=== PATIENT | female | born 1935 | race Caucasian/White ===

== ENCOUNTER 2017-01-27 16:22 | Inpatient (IN) | payer MEDICARE ==
--- NOTE | ~2017-01-27 | WRIGHTHP ---
[place], [place] PATIENT HISTORY AND PHYSICAL EXAM NAME: SAVAGE CANCHOLA UNIT #: [id number] ROOM: 310 DOCTOR: SID DENNEY MD BIRTHDATE: [birth year] DOS: 01/27/2017 CHIEF COMPLAINT: "Just leave me alone." HISTORY OF PRESENT ILLNESS: This is an 81-year-old white female who resides at the [facility]. The patient has had an escalation in her behavior becoming increasingly more verbal and physically agitated and aggressive. The patient also has been repeatedly stating that she wants to and is tired of living in a correction and would rather be . She has not been eating, nor has she been sleeping well and has been episodically noncompliant with her medications. She has been pulling her hair out and has been so aggressive and self-injurious that the staff at the [facility] fear for her safety as well as the safety of other residents. She is admitted now to rule out organic factors and to attempt to stabilize on medication with the ultimate plan to return back to the [facility] when psychiatrically stable. PAST MEDICAL HISTORY: Remarkable for coronary artery disease, chronic obstructive pulmonary disease, gait disturbance, hypertension, hyperlipidemia, a lung nodule, history of TIAs, breast cancer, dementia and depression. MENTAL STATUS: The patient is alert and oriented to self only. She is very confused and disoriented. She was not extremely compliant during my initial interview and was rather dismissive. Her responses to me were short and terse and she was very easily agitated. She did not appear to be experiencing any type of auditory or visual hallucinations, nor did I see the presence of any delusions or paranoia. Short-term and intermediate memory are grossly impaired. Long-term does seem to be intact. DIAGNOSIS: Major depression, recurrent, severe, and impulse control disorder, not otherwise specified along with Alzheimer's dementia. PLAN: I will increase her Depakote to 250 mg 3 times a day. I am targeting a blood level between 60-80. I will start her on Trintellix 10 mg a day to combat the depressive symptomatology. I have maintained her on Exelon patch and Namenda in order to improve or maintain ADLs, behavior and cognition. We will engage her in individual and verduzco milieu activity again with the plan to return to the [facility] when psychiatrically stable. [place], [place] PATIENT HISTORY AND PHYSICAL EXAM NAME: SAVAGE CANCHOLA UNIT #: [id number] ROOM: 310 DOCTOR: SID DENNEY MD BIRTHDATE: [birth year] SID DENNEY MD CM:HISPHYS:PATIENT HISTORY AND PHYSICAL EXAMINATION [id number] SID DENNEY MD 01/28/17 0933 interface
[~2017-01-27 16:22] MED LIST: ACETAMINOPHEN-O1 TAB PO; ANTI-DIARRHEA2 MG PO; ATIVAN0.5 MG PO; ATIVAN1 MG PO; CIPROFLOXACIN500 M4 PO; CYMBALTA60 MG PO; EXELON PO; EXELON3 MG PO; KEFLEX500 M1 PO; LIPITOR40 MG PO; LOPRESSOR25 MG PO; LOPRESSOR50 M1 PO; LORAZEPAM1 MG PO; MACROBID100 M1 PO; MAPAP ARTHRITI650 MG PO; MAPAP325 MG PO; Meclizine25 MG PO; NAMENDA-7 PO; NORVASC5 MG PO; PERCOCET 325 MG1 TA5 PO; PERCOCET 325 MG1 TA6 PO; PREDNISONE10 M1 PO; Percocet 325 MG1 TAB PO; RIVASTIGMINE T1.5 M1 PO; TYLENOL325 M1 PO; TYLENOL325 M2 PO; VITAMIN D1000 IU PO; ZOFRAN4 MG PO; ZOLOFT50 MG PO
[2017-01-27] MEDS ORDERED: DULCOLAX5 M1 PO (16:40)
[2017-01-27] MEDS ORDERED: ANTI-DANDRUFF251 ML T (16:45)
[2017-01-27] MEDS ORDERED: DEPAKOTE SPRIN125 MG PO (16:46)
[2017-01-27] MEDS ORDERED: EXEL13.31 T (16:47)
[2017-01-27] MEDS ORDERED: NAMENDA XR1 EACH PO (16:48)
[2017-01-27] MEDS ORDERED: REMERON15 M2 PO (16:49)
[2017-01-27 20:30] VITALS: BP 100/63
[2017-01-27 22:00] VITALS: BP 100/65
[2017-01-28 07:26] LABS: HEMATOCRIT 48.3 % (37.0-47.0); HEMOGLOBIN 16.1 g/dl (12.0-16.0); MEAN CELL VOLUME 92.2 fl (81.0-99.0); MEAN CORPUSCULAR HGB 30.7 pg (27.0-31.0); MEAN CORPUSCULAR HGB CONC 33.3 g/dl (33.0-37.0); MEAN PLATELET VOLUME 10.6 fl (9.6-12.3); PLATELET COUNT AUTOMATED 159 10*3/uL (130-400); RED BLOOD COUNT 5.24 10*6/uL (4.10-5.10); RED CELL DISTRI WIDTH 19.2 % (0-14.5)
[2017-01-28 07:52] LABS: BUN 23 mg/dl (7-24); CARBON DIOXIDE 35 mmol/L (21-32); CHLORIDE 103 mmol/L (98-107); EST GLOM FILT AFRICAN AMERICAN > 60 ml/min; GLUCOSE 71 mg/dL (65-99); POTASSIUM 4.1 mmol/L (3.5-5.1); SGOT/AST 79 IU/L (3-35); SGPT/ALT 28 U/L (12-78); SODIUM 145 mmol/L (136-145); TOTAL PROTEIN 5.1 gm/dL (6.4-8.2)
[2017-01-28 07:54] LABS: BASOPHIL # 0.1 10*3/uL (0-0.1); BASOPHILS 1 % (0-1); LYMPHOCYTE # 0.9 10*3/uL (1.3-4.4); MONOCYTE # 1.1 10*3/uL (0.1-1.0); NEUTROPHILS 71 % (47-73); PLATELET SUFFICIENCY NORMAL (NORMAL); TOTAL CELLS COUNTED 100 #CELLS
[2017-01-28 08:00] VITALS: BP 102/58
[2017-01-28 08:01] LABS: ALKALINE PHOSPHATASE 271 U/L (45-117)
[2017-01-28 19:57] VITALS: BP 104/76
[2017-01-28] MEDS ORDERED: DEPAKOTE SPRIN125 MG PO (23:02)
[2017-01-28] MEDS ORDERED: NAMENDA10 MG PO (23:03)
[2017-01-28] MEDS ORDERED: TRINTELLIX10 MG PO (23:04)
[2017-01-29] MEDS ORDERED: ATIVAN1 MG PO (09:04)
[2017-01-29] MEDS ORDERED: REMEDY CALAZIM113 GM TP (09:06)
[2017-01-29] MEDS ORDERED: REMERON15 M2 PO (09:07)
== END 2017-01-28 23:25 | disposition other institution (70) | DRG 885 ==
LOC: 3N 16:22
PROVIDERS: Psychiatry & Neurology Psychiatry
DX: F33.9 Major depressive disorder, recurrent, unspecified (principal); G30.9 Alzheimer's disease, unspecified; J44.9 Chronic obstructive pulmonary disease, unspecified; F02.80 Dementia in other diseases classified elsewhere, unspecified severity, without behavioral disturbance, psychotic disturbance, mood disturbance, and anxiety; F23 Brief psychotic disorder; F63.9 Impulse disorder, unspecified; I25.10 Atherosclerotic heart disease of native coronary artery without angina pectoris; R26.9 Unspecified abnormalities of gait and mobility; I10 Essential (primary) hypertension; E78.5 Hyperlipidemia, unspecified; Z53.29 Procedure and treatment not carried out because of patient's decision for other reasons; Z86.73 Personal history of transient ischemic attack (TIA), and cerebral infarction without residual deficits; Z85.3 Personal history of malignant neoplasm of breast; Z87.81 Personal history of (healed) traumatic fracture; Z90.49 Acquired absence of other specified parts of digestive tract; Z95.818 Presence of other cardiac implants and grafts; Z90.11 Acquired absence of right breast and nipple; Z72.0 Tobacco use; Z83.3 Family history of diabetes mellitus; Z80.9 Family history of malignant neoplasm, unspecified; Z88.0 Allergy status to penicillin; Z88.6 Allergy status to analgesic agent; Z79.899 Other long term (current) drug therapy

== ENCOUNTER 2017-01-28 22:53 | Inpatient (IN) | payer MEDICARE ==
[~2017-01-28] VITALS: Ht 157.5 cm; Wt 35.8 kg
--- NOTE | ~2017-01-28 | PR ---
[place], [place] PROGRESS NOTE NAME: SAVAGE CANCHOLA UNIT #: [id number] ROOM: 506 DOCTOR: TRISTIN LIRIANO MD,JUSTINO BIRTHDATE: [birth year] DOS: 02/06/2017 SUBJECTIVE: She has been comfortably sitting on the chair this morning without any acute distress. The patient has not been noted any symptoms of acute chest pain, coughing or any sputum expectoration. Denies symptoms of abdominal pain. OBJECTIVE: VITAL SIGNS: For the patient which has been recorded shows temperature was noted as normal, respiratory rate 16, heart rate 84, blood pressure 111/88. Pulse oxygen saturation of the patient noted on 3 liters nasal canula 98% saturation. HEENT: Examination shows no acute change. NECK: Supple. CARDIOVASCULAR: S1, S2 audible. LUNGS: The patient was noted without any wheezing or crackles. ABDOMEN: Soft, nontender. LABORATORY DATA: The patient's CBC: WBC count 11.3, platelet count 123,000. Remaining labs were normal. IMPRESSION: 1. The patient with pulmonary nodules in the right upper lung with history of dementia as well. 2. History of breast cancer. PLAN OF TREATMENT: No changes in pulmonary standpoint. She was still awaiting for authorization and transfer to the nursing facility. JUSTINO CROW MD CM:PNTRANS [id number] JUSTINO LIRIANO MD 02/12/17 1528 CRISPIN [email or web address]
--- NOTE | ~2017-01-28 | PR ---
[place], [place] PROGRESS NOTE NAME: SAVAGE CANCHOLA UNIT #: [id number] ROOM: 506 DOCTOR: JUSTINO RIVERA MD BIRTHDATE: [birth year] DOS: 02/02/2017 PULMONARY PROGRESS NOTE SUBJECTIVE: She has been comfortably resting on the bed at this time. She has not been noted any ongoing acute respiratory complaints at this time. Remains awake and alert. OBJECTIVE: VITAL SIGNS: For the patient which has been recorded shows normal temperature, respiratory rate 18, heart rate 80, blood pressure 126/60-141/95. The pulse oxygen saturation for the patient recorded as 94% on 2 liters nasal cannula. HEENT: Shows no acute change. NECK: Supple. CARDIOVASCULAR: S1, S2 is audible. LUNGS: The patient was noted without any wheeze or crackles at this time. ABDOMEN: Soft, nontender. LABORATORY DATA: BMP was noted grossly normal except sodium minimally elevated at 147. CBC: WBC count 13.5, hemoglobin 16.3, hematocrit 49.0 with a platelet count of 144,000. IMPRESSION: 1. Resolving acute hypoxic respiratory failure, lactic acidosis. 2. Right upper lung pulmonary nodule. Noted suspicion or possibility of lung malignancy. 3. History of breast cancer in the past as well. PLAN OF TREATMENT: No changes in the plan or management at this time. The patient seemed to be responding to treatment, improving and comfortably resting on the bed. Once any decision made by the family member for the patient for further assessment that needs to be done as an outpatient. The further assessment of the pulmonary nodule will be ordered accordingly. [place], [place] PROGRESS NOTE NAME: SAVAGE CANCHOLA UNIT #: [id number] ROOM: 506 DOCTOR: JUSTINO RIVERA MD BIRTHDATE: [birth year] JUSTINO CROW MD CM:PNTRANS [id number] JUSTINO LIRIANO MD 02/02/17 2243 interface
--- NOTE | ~2017-01-28 | PR ---
[place], [place] PROGRESS NOTE NAME: SAVAGE CANCHOLA UNIT #: [id number] ROOM: 506 DOCTOR: JUSTINO RIVERA MD BIRTHDATE: [birth year] DOS: 02/03/2017 PULMONARY FOLLOWUP SUBJECTIVE: She has been currently resting on the bed without any distress. One of the sons for this patient has been noted present in the room. She had not been reported any symptoms of chest congestion, coughing, shortness of breath. The patient has been noted to be sleepy at the present time. OBJECTIVE: VITAL SIGNS: Normal temperature, respirations 18-20, heart rate 119, blood pressure 102/78. HEENT AND NECK: Shows no acute change. Neck was supple. CARDIOVASCULAR: S1, S2 audible. LUNGS: Noted without any wheezing or crackles. ABDOMEN: Soft, nontender. EXTREMITIES: Remains unchanged. LABORATORY DATA: CBC today: WBC count 11.7, hemoglobin of 17.592, hematocrit of 52.2, platelet count was noted as normal. CMP of 02/03/2017 shows BUN of 25, creatinine 1.04. Glucose was normal. Remaining other electrolytes were noted normal as well. IMPRESSION: 1. The patient with change in mental status, which has been noted with incidental finding of right upper lung pulmonary nodule. 2. History of breast cancer was known as well. PLAN OF TREATMENT: Continue current therapy, plan and management. The patient's nodule in the lung has been discussed with the second son of the patient who was present in the room with the patient. Once the family members and the patient decide for any further intervention or assessment of the right upper lung pulmonary nodule, it will be done accordingly. [place], [place] PROGRESS NOTE NAME: SAVAGE CANCHOLA UNIT #: [id number] ROOM: 506 DOCTOR: JUSTINO RIVERA MD BIRTHDATE: [birth year] JUSTINO CROW MD CM:PNTRANS [id number] JUSTINO LIRIANO MD 02/03/17 1413 interface
--- NOTE | ~2017-01-28 | CON ---
[place], [place] REPORT OF CONSULTATION NAME: SAVAGE CANCHOLA UNIT #: [id number] ROOM: 506 DOCTOR: TRISTIN LIRIANO MD,JUSTINO BIRTHDATE: [birth year] DOS: 02/01/2017 PULMONARY CONSULTATION REASON FOR CONSULTATION: To assess the patient's recent finding of mass lesion on the CT scan of the chest. HISTORY OF PRESENT ILLNESS: This is an 81-year-old white female, who has been admitted to the hospital under care of the hospitalist services on 01/28/2017. The patient has been initially admitted to the hospital in the Behavioral Health Unit because of the medical management of acute psychosis. The patient developed oxygen desaturation. The patient intubated at [facility] and then transferred to the acute care hospital for further medical management. The patient reported at that time symptoms of shortness of breath. She denied symptoms of chest pain. Denied symptoms of coughing or sputum expectoration at this time. The patient was also noted decreased responsiveness as well for this patient that has been noted in her history. The patient has been managed in this hospital. She has had a CT scan of the chest done, which was noted with problems and a mass-like lesion in the right lung and I was asked to see the patient. The patient currently denies any ongoing symptoms of shortness of breath, coughing, sputum expectoration, chest pain or hemoptysis. REVIEW OF SYSTEMS: The patient is stating that the patient has been known with history of dementia, and review of systems and history of patient will be limited. Most of the history of the patient otherwise was noted from review of the current documentation, medical records of other physicians, records and the nursing staff. CONSTITUTIONAL SYMPTOMS: Denies symptoms of fever or chills. Complaining of fatigue. There were no changes in appetite. EYES: Denied any burning, redness, or tenderness. EARS, NOSE, THROAT SYMPTOMS: No sore throat, hoarseness, or otalgia. CARDIOVASCULAR: Denies anginal pain, edema, pain of the lower extremities. GASTROINTESTINAL: Denies dysphagia, nausea, vomiting, diarrhea, abdominal pain, hematemesis, or melena. GENITOURINARY: Denies dysuria, suprapubic pain, hematuria. SKIN: Denies lesions or rashes. CENTRAL NERVOUS SYSTEM: Denies dizziness, headache, diplopia or syncopal episodes. Remaining systems were reviewed with the patient, they were noted all negative. PAST MEDICAL HISTORY: Noted with history of: 1. COPD. 2. Coronary artery disease. 3. History of chronic dementia. 4. General weakness of the patient and difficulty of ambulation. 5. Essential hypertension. 6. Hyperlipidemia. 7. History of transient ischemic attack. 8. History of past, described as pulmonary nodules as well. [place], [place] REPORT OF CONSULTATION NAME: SAVAGE CANCHOLA UNIT #: [id number] ROOM: [facility] DOCTOR: TRISTIN LIRIANO MD,JUSTINO BIRTHDATE: [birth year] 9. History of breast cancer, right, treated in 2008, surgically. PAST SURGICAL HISTORY: 1. The patient reported with back surgery. 2. Cholecystectomy. 3. Cardiac catheterization and coronary artery stent placement. 4. Right breast lumpectomy done in 2008. The patient's further details were unknown. SOCIAL HISTORY: The patient currently a resident of [facility]. She is staying there for 6 months or greater as per son. She has been noted with history of tobacco use at a pack of cigarettes per day that was discontinued approximately in 2014. She is and has 2 children. FAMILY HISTORY: The patient was reported as history of diabetes mellitus in the father and cancer in the mother of unknown kind of cancer. MEDICATIONS: On admission listed use of Dulcolax, ____, vitamin D, Depakote, lorazepam, Namenda, rivastigmine. DRUG ALLERGIES: 1. ASPIRIN. 2. PENICILLINS. Previous medications noted use of intravenous Solu-Medrol, Levaquin, meropenem, and vancomycin. This morning, the patient was started on the doxycycline oral 100 mg b.i.d. and tapering dose of prednisone 40 mg daily. The patient also receiving Lovenox for DVT prophylaxis. PHYSICAL EXAMINATION: GENERAL: An 81-year-old elderly female currently noted awake and alert without any distress. Height 5 feet 3 inches, weight 79 pounds. BMI was only noted as 14. VITAL SIGNS: For the patient, which has been done showed the temperature recorded normal, respiratory rate 16-18, heart rate of 99-110, blood pressure 116/72-142/98. Pulse oxygen saturation of the patient recorded on 2 L nasal cannula 98% saturation. HEENT: Examination shows head was atraumatic. Eyes nonicterus. NECK: Supple. CARDIOVASCULAR: S1, S2 audible. LUNGS: The patient was noted without any wheezing or crackles at the present time. ABDOMEN: Soft, nontender, bowel sounds present. CENTRAL NERVOUS SYSTEM: The patient has loss of muscle mass, the patient noted without any gross focal deficit. Cranial nerves are grossly noted intact secondary to ____. MUSCULOSKELETAL: No deformities. SKIN: Showed no lesions or any rashes. LABORATORY DATA: CBC of the patient on 01/28/2017 was noted essentially normal. [place], [place] REPORT OF CONSULTATION NAME: SAVAGE CANCHOLA UNIT #: [id number] ROOM: 506 DOCTOR: TRISTIN LIRIANO MD,[facility] BIRTHDATE: [birth year] CMP of the patient on 01/28/2017 was noted as CO2 35. The BMP was normal. Lactic acid was 2.6, noted, upon admission, the acute care for this patient later noted as elevated up to 7.4 and other levels. PT/PTT for the patient that was done on 01/29/2017 on admission, INR 1.3, PTT normal. CBC of the patient of 01/29/2017, hemoglobin 18.3, hematocrit 54.3, WBC count normal, platelet count was normal at that time. The CMP of the patient on 01/29/2017 shows BUN 26, creatinine was normal. CO2 of 33. Modified barium swallow with the patient completed for this patient on 01/29/2017, was described as passive penetration with nectar thick consistency. Otherwise, normal oropharyngeal reflux was described. CBC of 01/30/2017 was noted with a normal BUN and creatinine. CMP of the patient, BUN 26, creatinine was normal, glucose 167. The blood culture for the patient, which were done for the patient of 01/29/2017, 2 sets, the patient was noted without any abnormal bacterial growth in isolation. Vancomycin trough level today was noted at 4.4. The BMP for this patient that was noted for this patient as glucose 64, BUN and creatinine were normal. Review of the radiology data for this patient, chest x-ray of the patient that was done on 01/28/2017 shows small nodular density noted in the right upper lobe. CT scan of the chest, which was done without contrast for the patient was reviewed for this patient was noted as findings of 2.3 cm nodule for the patient, which has been noted in the right upper lung in the subpleural area for this patient. Remaining lungs were noted clear. A 5 mm new sclerotic lesion was described in the thoracic spine vertebral body, raising a possible suspicion of metastatic cancer. IMPRESSION: 1. The patient with current admission to the hospital. The patient with suspected pneumonia, but there is no documentation of any infiltration noted on the chest x-ray or on the CT scan of the chest. The etiology of the patient's acute hypoxic respiratory failure and lactic acidosis at this time seemed to be resolving, underlying infection in the patient cannot be exactly pinpointed. 2. Hemoconcentration. The patient was noted with elevation in hematocrit, most likely secondary to volume contraction, which seemed to be resolved at the present time. 3. History of breast cancer. The patient was noted on the right side in the past. Further details were not clearly known. Current nodule in the patient and some abnormality in the spine, raising the suspicion of possibility of metastatic malignancy. 4. The patient has been currently admitted to the hospital, developed acute hypoxic respiratory failure. The patient's hemoconcentration with the questionable diagnosis of pneumonia; however, the pneumonia or infiltration has not been seen on the chest x-ray and CT scan of the chest, underlying sepsis or pneumonia, from other parts of the body certainly cannot be completely excluded. A resolution of the current problem, which was noted on acute admission. 5. Nodule which is noted in the right upper lobe for this patient as well as some abnormality in the thoracic spine and vertebral body, raising the suspicion of possibility of metastatic malignancy for this patient as well. In view of the past history of breast cancer which has been treated in 2008 for this patient, certainly the possibility of remote cancer recurring and the metastatic disease in the patient's thorax and vertebral spine remain in consideration. [place], [place] REPORT OF CONSULTATION NAME: SAVAGE CANCHOLA UNIT #: [id number] ROOM: 506 DOCTOR: JUSTINO RIVERA MD BIRTHDATE: [birth year] The other differential to be considered with the patient's primary lung cancer metastasis to the bone in the differential diagnosis. 6. History of chronic dementia. 7. Clinical suspicion of severe protein calorie malnutrition. 8. History of chronic dementia and multiple other medical problems, which have been reported including coronary artery disease. In the management component at this time, agree with the de-aspiration and antibiotic because of lack of any culture support and current use of broad spectrum intravenous antibiotic, lactic acidosis has been already resolved. The patient continues to be treated otherwise symptomatically at this time. I had a detailed discussion with one of the patient's son, who was present in the room with the patient about the current problem. Further assessment that needs to be done with patient as an outpatient with a PET scan for the patient and consideration of needle aspiration biopsy of the right upper lung nodule, currently noted highly suspicious with possibility of malignancy because of his parents. Oxygen supplementation certainly to be used for this patient to maintain saturation 90% or greater. Usual care and other therapies. Improve the nutritional status for this patient as well. Thank you for allowing me to participate in the care of this patient. JUSTINO CROW MD CM:CONSTR:REPORT OF CONSULTATION 1519 02/02/17 0313 interface
--- NOTE | ~2017-01-28 | PROC NOTE ---
[place], [place] PROCEDURE NOTE NAME: SAVAGE CANCHOLA UNIT #: [id number] ROOM: 506 DOCTOR: MALISSA NOBLE BIRTHDATE: [birth year] DOS: 01/29/2017 MODIFIED BARIUM SWALLOW LOCATION: [facility], room 506, bed 1. DOCTOR: Dr. Bauer. RADIOLOGIST: Dr. Parks. BACKGROUND INFORMATION: The patient, an 81-year-old female, was seen for a modified barium swallow. This test was ordered to rule out aspiration. This patient was transferred to the medical floor from the behavioral health unit due to respiratory failure with hypoxia. Further medical history includes sepsis due to pneumonia, CAD, COPD, dementia, weakness, TIA, lung nodule, malignant neoplasm of left breast. The patient had been on the Behavioral Health Unit due to suffering a brief psychotic disorder. She was transferred from a residential. She currently receives a regular diet and thin liquids. For today's assessment, the patient was lethargic. She needed cues to maintain alertness. The patient was receiving oxygen via nasal cannula. She had difficulty following commands. Therefore, full assessment of oral motor functioning was unable to be completed. The patient was edentulous. METHODS AND MATERIALS USED FOR THE EXAM: The patient was positioned in the lateral plane and the exam was viewed under fluoroscopy. The patient was presented with a variety of consistencies to assess swallowing skills including applesauce mixed with barium presented in half teaspoon amounts, honey-thick and nectar-thick barium presented in single sip sized amounts. The patient needed cues throughout the study to remain awake and 2 propel and swallow her food. ORAL PHASE: The patient achieved adequate labial seal around cup and spoon with no anterior loss. Bolus formation and transit were moderately impaired and residue of a moderate amount was displayed in the anterior sulcus with all consistencies given. Tongue to palate contact was adequate. Tongue to posterior pharyngeal wall contact was mildly impaired. Velar functioning was within normal limits. PHARYNGEAL PHASE: The patient needed cues as previously mentioned in order to swallow due to her mental state. Once the swallow triggered, there was no penetration or aspiration occurring with honey-thick or pureed consistency. Silent penetration did occur with nectar thick liquids, a mild amount of residue in the vallecula was noted with puree. No other consistencies were attempted due to the patient's status. ESOPHAGEAL PHASE: This phase of the swallow was not formally assessed during this examination. IMPRESSIONS AND RECOMMENDATIONS: Throughout the study, the patient needed frequent cues to maintain alertness and ability to participate. She displayed poor bolus formation and transit as well as residue in the anterior sulcus. [place], [place] PROCEDURE NOTE NAME: SAVAGE CANCHOLA UNIT #: [id number] ROOM: [facility] DOCTOR: MALISSA NOBLE BIRTHDATE: [birth year] Penetration during the swallow occurred with nectar-thick liquid. Reports indicate that the patient has been lethargic due to this and due to the results of today's study, n.p.o. is recommended at this time. The patient is not alert enough to eat safely. Followup therapy is recommended in order to continue to monitor the patient as she may be able to tolerate a diet once she is more alert. Results and recommendations will be shared with the patient's nurse. Thank you very much for this referral. Should you have any questions regarding this patient, please contact the speech pathologist at [phone]. MALISSA NOBLE CM:PROCNOTE:PROCEDURE NOTE [id number] MALISSA NOBLE
--- NOTE | ~2017-01-28 | CON ---
[place], [place] REPORT OF CONSULTATION NAME: SAVAEG CANCHOLA UNIT #: [id number] ROOM: 506 DOCTOR: MARISA LOUIS BIRTHDATE: [birth year] DOS: 02/02/2017 CHIEF COMPLAINT: The resident is sleeping. HISTORY OF PRESENT ILLNESS: She is an 81-year-old female who was brought into the Behavioral Health Unit for acute agitation and behaviors. Subsequently, she was transferred here to the medical floor with acute respiratory failure. She did have a chest x-ray that was positive for pneumonia and she has been medically treated for that. PAST MEDICAL HISTORY: Coronary artery disease, COPD, dementia, depression, history of breast CA. She has hypertension and she does have a past history of TIA. ALLERGIES: She is allergic to ASPIRIN and to PENICILLIN. MENTAL STATUS: She was sleeping when I went into the room, she did have Restoril and Zofran around 4:00 in the morning and so she is very sleepy today. Unable to assess her orientation, but generally she is oriented to herself, approximate to place and time. Staff reported that she has had no annel or hypomania, no overt audio or visual hallucinations, delusions or paranoia. Memory does have gaps. They report that she is actually eating much better than she had been on the floor. Her current psychiatric medication is really only the Restoril that she gets at bedtime to help her sleep. DIAGNOSIS: Brief psychotic disorder and insomnia. PLAN: I see no need to follow her further from a psychiatric standpoint, she is stable. She eating better and can be discharged back to her long-term care facility as soon as she is medically stable. Marisa Louis NP CM:CONSTR:REPORT OF CONSULTATION 0944 02/02/17 1502 interface
--- NOTE | ~2017-01-28 | PR ---
[place], [place] PROGRESS NOTE NAME: SAVAGE CANCHOLA UNIT #: [id number] ROOM: 506 DOCTOR: TRISTIN LIRIANO MD,JUSTINO BIRTHDATE: [birth year] DOS: 02/05/2017 SUBJECTIVE: The patient was planned for discharge to the nursing facility at this time. Still awaiting for brace certification from the insurance. She has been noted to be awake and alert. Denies any cough, sputum expectoration or any chest pain. OBJECTIVE: VITAL SIGNS: Normal temperature, respiratory rate of 18, heart rate 98, blood pressure 144/87 to 132/85. The pulse oxygen saturation on 2 liters nasal cannula, 96% saturation recorded. HEENT: Shows no acute change. NECK: Supple. CARDIOVASCULAR: S1, S2 audible. LUNGS: The patient was noted without any wheeze or crackles at the present time. ABDOMEN: Flat, soft, nontender. EXTREMITIES: Show no edema. IMPRESSION: 1. Stable respiratory status was noted at this time; right upper lung pulmonary nodule, possibility of malignancy has been considered. 2. History of breast cancer, previously treated a few years ago. PLAN OF TREATMENT: No changes in the plan of management. Continue the patient on current therapy, plan of care as previously in progress. ____. Usual therapy, other plan of care. JUSTINO CROW MD CM:PNTRANS [id number] JUSTINO LIRIANO MD 02/05/17 1120 interface
--- NOTE | ~2017-01-28 | PROC NOTE ---
[place], [place] PROCEDURE NOTE NAME: SAVAGE CANCHOLA UNIT #: [id number] ROOM: 506 DOCTOR: TRENTON REED BIRTHDATE: [birth year] DOS: MODIFIED BARIUM SWALLOW BACKGROUND HISTORY AND MEDICAL HISTORY: The patient was seen for a followup modified barium swallow. She had had one 2 days earlier, but it was recommended she be n.p.o. due to moderate difficulty with oral phase, penetration, stasis, very sleepy and unable to follow commands and judged unsafe for p.o. intake. Today, she was more alert. She was able to follow conversation, follow directions. She had some confusion. She has a diagnosis of respiratory failure, she has a history of brief psychotic disorder. She currently also has sepsis, COPD, dementia and is n.p.o. based on last modified barium swallow. METHODS AND MATERIALS: The patient was on a gurney. She was seated upright and viewed in the lateral plane. The study was done in conjunction with Dr. Parks. The patient was able to self-feed. She was given pudding mixed with barium paste, honey-thick liquid barium, thin barium via straw and cup. ORAL PHASE: The patient presents with mild reduced ability to form a cohesive bolus suspected due to lingual weakness, overall weakness with all consistencies. She had some passive falling of all consistencies from the oral phase during oral preparation into the vallecula with a total oral transient time from the faucial arches to the trigger of the swallow is 4 seconds, but once her vallecula was full, she triggered a pharyngeal phase swallow within 2 seconds on all consistencies. The patient did not demonstrate any oral residue with any consistencies that was significant. PHARYNGEAL PHASE: The swallow was triggered at the level of the vallecula. Once it was filled, it was 2 seconds before the pharyngeal phase was triggered, which is a mild delay. Laryngeal elevation appeared adequate. The patient did demonstrate some penetration with a large sip out of a straw on thin liquid, but it was transient, it was in a [id number] amount, but was cleared during the swallow probably due to laryngeal elevation. She did not cough or choke. No aspiration was noted. The patient was cued to use a chin tuck without a straw just a cup in single sips of thin liquid, which she naturally did, but she was cued to put her chin more closer to her chest after she took a single small sip out of a cup of thin barium and there was no penetration noted. There was a very trace amount of laryngeal residue and this was cleared with other swallows and was not significant. RECOMMENDATIONS AND IMPRESSION: It is recommended that the patient be on a puree diet with single small sips of liquid via cup, avoid straws with a chin tuck every time she drinks thin liquids. Speech Pathology to follow for oral program to increase bolus manipulation and control and improve oral phase as well as train caregivers on a chin tuck. Thank you for this referral. [place], [place] PROCEDURE NOTE NAME: SAVAGE CANCHOLA UNIT #: [id number] ROOM: 506 DOCTOR: TRENTON REED BIRTHDATE: [birth year] TRENTON REED CM:PROCNOTE:PROCEDURE NOTE [id number] TRENTON REED
--- NOTE | ~2017-01-28 | PR ---
[place], [place] PROGRESS NOTE NAME: SAVAGE CANCHOLA UNIT #: [id number] ROOM: 506 DOCTOR: TRISTIN LIRIANO MD,JUSTINO BIRTHDATE: [birth year] DOS: 02/04/2017 PULMONARY FOLLOWUP SUBJECTIVE: She has been noted essentially same from Pulmonary standpoint. There were no symptoms of acute shortness of breath, coughing, chest pain, sputum expectoration. The precertification for discharge to the retirement facility was pending at this time. OBJECTIVE: VITAL SIGNS: Normal temperature, respiratory rate 20, heart rate 105, blood pressure 190/74. HEENT: Showed no acute change. NECK: Supple. CARDIOVASCULAR: S1, S2 audible. LUNGS: Without any wheezing or crackles at this time. ABDOMEN: Soft, nontender. IMPRESSION: Stable respiratory status as noted at the present time with incidental finding of the right upper lung pulmonary nodule, history of breast cancer, rule out malignancy. PLAN OF TREATMENT: No changes from the Pulmonary standpoint. Continue current therapy as in progress. Further assessment of pulmonary nodules per wishes of the patient and family members. They are made aware of that and discussion was done. If they would like to have further assessment done, they can make an appointment in my office for that. JUSTINO CROW MD CM:PNTRANS [id number] JUSTINO LIRIANO MD 02/04/17 1022 interface
[~2017-01-28 22:53] MED LIST changes: +ANTI-DANDRUFF251 ML T; +DEPAKOTE SPRIN125 MG PO; +DULCOLAX5 M1 PO; +EXEL13.31 T; +NAMENDA XR1 EACH PO; +REMERON15 M2 PO
[2017-01-28] MEDS ORDERED: DEPAKOTE SPRIN125 MG PO (23:02)
[2017-01-28] MEDS ORDERED: NAMENDA10 MG PO (23:03)
[2017-01-28] MEDS ORDERED: TRINTELLIX10 MG PO (23:04)
[2017-01-29] VITALS: BP 126/88
[2017-01-29 00:25] LABS: MEAN CELL VOLUME 91.6 fl (81.0-99.0); MEAN CORPUSCULAR HGB 30.6 pg (27.0-31.0); MEAN CORPUSCULAR HGB CONC 33.4 g/dl (33.0-37.0); PLATELET COUNT AUTOMATED 174 10*3/uL (130-400); RED BLOOD COUNT 5.98 10*6/uL (4.10-5.10); RED CELL DISTRI WIDTH 20.2 % (0-14.5); WHITE BLOOD COUNT 9.2 10*3/uL (4.8-10.8)
[2017-01-29 00:32] LABS: HEMATOCRIT 54.8 % (37.0-47.0); HEMOGLOBIN 18.3 g/dl (12.0-16.0)
[2017-01-29 00:35] LABS: INTERNATIONAL NORM RATIO 1.3 (2.0-3.5); PROTHROMBIN TIME 13.5 SECONDS (9.0-12.4)
[2017-01-29 00:43] LABS: ALBUMIN 2.4 gm/dl (3.1-4.5); ALKALINE PHOSPHATASE 339 U/L (45-117); BILIRUBIN, TOTAL 1.3 mg/dl (0.2-1.0); BUN 26 mg/dl (7-24); CARBON DIOXIDE 33 mmol/L (21-32); CHLORIDE 102 mmol/L (98-107); EST GLOM FILT AFRICAN AMERICAN > 60 ml/min; GLUCOSE 93 mg/dL (65-99); MAGNESIUM 1.8 mg/dL (1.5-2.1); POTASSIUM 4.6 mmol/L (3.5-5.1); SGOT/AST 88 IU/L (3-35); SGPT/ALT 34 U/L (12-78); SODIUM 144 mmol/L (136-145); TOTAL PROTEIN 6.3 gm/dL (6.4-8.2)
[2017-01-29 00:49] LABS: LYMPHOCYTE # 0.9 10*3/uL (1.3-4.4); MONOCYTE # 1.2 10*3/uL (0.1-1.0); NEUTROPHIL # 7.1 10*3/uL (2.3-7.9); NEUTROPHILS 77 % (47-73); PLATELET SUFFICIENCY NORMAL (NORMAL); TOTAL CELLS COUNTED 100 #CELLS
[2017-01-29 00:51] LABS: TROPONIN I < 0.015 ng/ml (<0.045)
[2017-01-29 02:20] LABS: LA>2 REFLEX 2 HR DRAW NOW
[2017-01-29 02:51] LABS: LA>2 RFLX FOLLOW UP AT 2 HRS 2.1 mmol/L (0.4-2.0)
[2017-01-29 04:40] LABS: LA>2 REFLEX 4 HR DRAW NOW
[2017-01-29 08:00] VITALS: BP 135/99
[2017-01-29] MEDS ORDERED: ATIVAN1 MG PO (09:04)
[2017-01-29] MEDS ORDERED: REMEDY CALAZIM113 GM TP (09:06)
[2017-01-29] MEDS ORDERED: REMERON15 M2 PO (09:07)
[2017-01-29 10:56] LABS: LA>2 REFLEX 2 HR DRAW NOW
[2017-01-29 11:43] LABS: LA>2 RFLX FOLLOW UP AT 2 HRS 7.4 mmol/L (0.4-2.0)
[2017-01-29 12:00] VITALS: BP 124/89
[2017-01-29 12:12] LABS: BASO % 0.3 % (0.0-1.0); HEMATOCRIT 53.7 % (37.0-47.0); HEMOGLOBIN 17.5 g/dl (12.0-16.0); IG # 0.1 10*3/uL (0.0-0.1); LYMPH # 0.4 10*3/uL (1.3-4.4); MEAN CELL VOLUME 92.7 fl (81.0-99.0); MEAN CORPUSCULAR HGB 30.2 pg (27.0-31.0); MEAN CORPUSCULAR HGB CONC 32.6 g/dl (33.0-37.0); MEAN PLATELET VOLUME 10.4 fl (9.6-12.3); MONO # 0.8 10*3/uL (0.1-1.0); NEUT # 9.4 10*3/uL (2.3-7.9); NEUT % 88.2 % (47.0-73.0); PLATELET COUNT AUTOMATED 169 10*3/uL (130-400); RED BLOOD COUNT 5.79 10*6/uL (4.10-5.10); RED CELL DISTRI WIDTH 20.4 % (0-14.5); WHITE BLOOD COUNT 10.7 10*3/uL (4.8-10.8)
[2017-01-29 13:00] LABS: BILIRUBIN 1+ (NEGATIVE); BLOOD 1+ (NEGATIVE); CLARITY CLOUDY (CLEAR); COLOR YELLOW (YELLOW); GLUCOSE NEGATIVE (NEGATIVE); KETONE TRACE (NEGATIVE); LEUKO ESTERASE NEGATIVE (NEGATIVE); NITRITE POSITIVE (NEGATIVE); PROTEIN TRACE (NEGATIVE); SPECIFIC GRAVITY >= 1.030 (1.005-1.030)
[2017-01-29 13:10] LABS: MUCOUS 2+; URINE REFLEX COMMENT YES (NO)
[2017-01-29 13:35] LABS: LA>2 REFLEX 4 HR DRAW NOW
[2017-01-29 16:00] VITALS: BP 111/76
[2017-01-29 20:00] VITALS: BP 112/81
[2017-01-30] VITALS: BP 113/80
[2017-01-30 04:00] VITALS: BP 115/79
[2017-01-30 06:50] LABS: BASO % 0.1 % (0.0-1.0); IG # 0.1 10*3/uL (0.0-0.1); LYMPH # 0.4 10*3/uL (1.3-4.4); MEAN CELL VOLUME 93.7 fl (81.0-99.0); MEAN CORPUSCULAR HGB 30.4 pg (27.0-31.0); MEAN CORPUSCULAR HGB CONC 32.4 g/dl (33.0-37.0); MEAN PLATELET VOLUME 11.2 fl (9.6-12.3); MONO # 1.1 10*3/uL (0.1-1.0); MONO % 9.4 % (3.0-9.0); NEUT # 10.6 10*3/uL (2.3-7.9); NEUT % 87.1 % (47.0-73.0); PLATELET COUNT AUTOMATED 128 10*3/uL (130-400); RED BLOOD COUNT 5.07 10*6/uL (4.10-5.10); RED CELL DISTRI WIDTH 19.6 % (0-14.5); WHITE BLOOD COUNT 12.2 10*3/uL (4.8-10.8)
[2017-01-30 06:51] LABS: HEMATOCRIT 47.5 % (37.0-47.0); HEMOGLOBIN 15.4 g/dl (12.0-16.0)
[2017-01-30 07:17] LABS: ALBUMIN 1.9 gm/dl (3.1-4.5); ALKALINE PHOSPHATASE 228 U/L (45-117); BILIRUBIN, TOTAL 0.7 mg/dl (0.2-1.0); BUN 26 mg/dl (7-24); CARBON DIOXIDE 31 mmol/L (21-32); CHLORIDE 100 mmol/L (98-107); EST GLOM FILT AFRICAN AMERICAN > 60 ml/min; GLUCOSE 167 mg/dL (65-99); MAGNESIUM 1.6 mg/dL (1.5-2.1); PHOSPHOROUS 1.8 mg/dL (2.5-4.9); SGOT/AST 50 IU/L (3-35); SGPT/ALT 22 U/L (12-78)
[2017-01-30 07:28] LABS: POTASSIUM 3.6 mmol/L (3.5-5.1); SODIUM 142 mmol/L (136-145)
[2017-01-30 08:00] VITALS: BP 131/94
[2017-01-30 10:47] LABS: LA>2 REFLEX 2 HR DRAW NOW
[2017-01-30 11:31] LABS: LA>2 RFLX FOLLOW UP AT 2 HRS 3.5 mmol/L (0.4-2.0)
[2017-01-30 12:00] VITALS: BP 107/69
[2017-01-30 13:02] LABS: LA>2 REFLEX 4 HR DRAW NOW
[2017-01-30 16:00] VITALS: BP 116/72
[2017-01-30 20:00] VITALS: BP 115/84
[2017-01-31] VITALS: BP 142/98
[2017-01-31 06:31] LABS: BUN 19 mg/dl (7-24); CARBON DIOXIDE 31 mmol/L (21-32); CHLORIDE 97 mmol/L (98-107); EST GLOM FILT AFRICAN AMERICAN > 60 ml/min; GLUCOSE 106 mg/dL (65-99); MAGNESIUM 1.5 mg/dL (1.5-2.1); PHOSPHOROUS 1.8 mg/dL (2.5-4.9); POTASSIUM 3.7 mmol/L (3.5-5.1); SODIUM 138 mmol/L (136-145)
[2017-01-31 08:00] VITALS: BP 133/90
[2017-01-31 12:00] VITALS: BP 122/87
[2017-01-31 16:00] VITALS: BP 117/82
[2017-01-31 20:00] VITALS: BP 93/64
[2017-02-01] VITALS: BP 96/57
[2017-02-01 04:00] VITALS: BP 92/50
[2017-02-01 06:31] LABS: BUN 18 mg/dl (7-24); CARBON DIOXIDE 31 mmol/L (21-32); CHLORIDE 105 mmol/L (98-107); GLUCOSE 64 mg/dL (65-99); MAGNESIUM 1.5 mg/dL (1.5-2.1); POTASSIUM 4.2 mmol/L (3.5-5.1); SODIUM 148 mmol/L (136-145)
[2017-02-01 06:33] LABS: EST GLOM FILT AFRICAN AMERICAN > 60 ml/min; PHOSPHOROUS 3.5 mg/dL (2.5-4.9)
[2017-02-01 08:00] VITALS: BP 101/71
[2017-02-01 12:00] VITALS: BP 121/80
[2017-02-01 16:00] VITALS: BP 110/76
[2017-02-01 20:00] VITALS: BP 144/86
[2017-02-02] VITALS: BP 141/95
[2017-02-02 06:24] LABS: HEMOGLOBIN 16.3 g/dl (12.0-16.0); MEAN CELL VOLUME 90.4 fl (81.0-99.0); MEAN CORPUSCULAR HGB 30.1 pg (27.0-31.0); MEAN CORPUSCULAR HGB CONC 33.3 g/dl (33.0-37.0); MEAN PLATELET VOLUME 10.3 fl (9.6-12.3); PLATELET COUNT AUTOMATED 144 10*3/uL (130-400); RED BLOOD COUNT 5.42 10*6/uL (4.10-5.10); RED CELL DISTRI WIDTH 20.2 % (0-14.5); WHITE BLOOD COUNT 13.1 10*3/uL (4.8-10.8)
[2017-02-02 06:34] LABS: BUN 21 mg/dl (7-24); CARBON DIOXIDE 30 mmol/L (21-32); CHLORIDE 106 mmol/L (98-107); EST GLOM FILT AFRICAN AMERICAN > 60 ml/min; GLUCOSE 72 mg/dL (65-99); POTASSIUM 4.4 mmol/L (3.5-5.1); SODIUM 147 mmol/L (136-145)
[2017-02-02 06:52] LABS: LYMPHOCYTE # 1.3 10*3/uL (1.3-4.4); MONOCYTE # 1.4 10*3/uL (0.1-1.0); MYELOCYTES 1 % (0-0); NEUTROPHIL # 10.2 10*3/uL (2.3-7.9); NEUTROPHILS 78 % (47-73); PLATELET SUFFICIENCY NORMAL (NORMAL); TOTAL CELLS COUNTED 100 #CELLS
[2017-02-02 08:00] VITALS: BP 106/62
[2017-02-02 12:00] VITALS: BP 110/62
[2017-02-02 16:00] VITALS: BP 105/81
[2017-02-02 20:00] VITALS: BP 120/92
[2017-02-03] VITALS (8 sets, daily range): BP systolic 102–144; BP diastolic 63–100
[2017-02-03 06:31] LABS: BASO % 0.2 % (0.0-1.0); HEMATOCRIT 52.4 % (37.0-47.0); HEMOGLOBIN 17.5 g/dl (12.0-16.0); IG # 0.1 10*3/uL (0.0-0.1); LYMPH % 7.7 % (27.0-41.0); MEAN CELL VOLUME 90.8 fl (81.0-99.0); MEAN CORPUSCULAR HGB 30.3 pg (27.0-31.0); MEAN CORPUSCULAR HGB CONC 33.4 g/dl (33.0-37.0); MEAN PLATELET VOLUME 11.5 fl (9.6-12.3); MONO # 1.3 10*3/uL (0.1-1.0); MONO % 10.2 % (3.0-9.0); NEUT # 10.8 10*3/uL (2.3-7.9); NEUT % 81.3 % (47.0-73.0); PLATELET COUNT AUTOMATED 180 10*3/uL (130-400); RED BLOOD COUNT 5.77 10*6/uL (4.10-5.10); WHITE BLOOD COUNT 13.2 10*3/uL (4.8-10.8)
[2017-02-03 06:53] LABS: CARBON DIOXIDE 30 mmol/L (21-32); CHLORIDE 104 mmol/L (98-107); EST GLOM FILT AFRICAN AMERICAN > 60 ml/min; GLUCOSE 130 mg/dL (65-99); POTASSIUM 4.8 mmol/L (3.5-5.1); SODIUM 145 mmol/L (136-145)
[2017-02-03 06:54] LABS: BUN 35 mg/dl (7-24)
[2017-02-03] MEDS ORDERED: DOXYCYCLINE MO100 M1 PO (13:06)
[2017-02-04] VITALS: BP 106/79
[2017-02-04 08:00] VITALS: BP 90/74
[2017-02-04 12:00] VITALS: BP 126/93
[2017-02-04 16:00] VITALS: BP 103/83
[2017-02-04 20:00] VITALS: BP 109/75
[2017-02-05] VITALS: BP 132/85
[2017-02-05 08:00] VITALS: BP 144/87
[2017-02-05 17:33] VITALS: BP 124/78
[2017-02-05 20:00] VITALS: BP 111/81
[2017-02-06] VITALS: BP 133/86
[2017-02-06 06:46] LABS: BASO % 0.1 % (0.0-1.0); EOS % 0.3 % (1.0-4.0); HEMATOCRIT 44.7 % (37.0-47.0); HEMOGLOBIN 14.9 g/dl (12.0-16.0); IG # 0.1 10*3/uL (0.0-0.1); LYMPH # 1.2 10*3/uL (1.3-4.4); LYMPH % 10.7 % (27.0-41.0); MEAN CELL VOLUME 91.6 fl (81.0-99.0); MEAN CORPUSCULAR HGB 30.5 pg (27.0-31.0); MEAN CORPUSCULAR HGB CONC 33.3 g/dl (33.0-37.0); MEAN PLATELET VOLUME 10.7 fl (9.6-12.3); MONO # 1.4 10*3/uL (0.1-1.0); MONO % 12.1 % (3.0-9.0); NEUT # 8.6 10*3/uL (2.3-7.9); NEUT % 75.8 % (47.0-73.0); PLATELET COUNT AUTOMATED 123 10*3/uL (130-400); RED BLOOD COUNT 4.88 10*6/uL (4.10-5.10); WHITE BLOOD COUNT 11.3 10*3/uL (4.8-10.8)
[2017-02-06 07:05] LABS: EST GLOM FILT AFRICAN AMERICAN > 60 ml/min
[2017-02-06 08:00] VITALS: BP 111/88
== END 2017-02-06 11:55 | disposition other institution (70) | DRG 871 ==
LOC: 5E 22:53
PROVIDERS: Internal Medicine; Internal Medicine Hospice and Palliative Medicine
PROC: BD11YZZ Fluoroscopy of Esophagus using Other Contrast (ICD-10-PCS; principal; 2017-01-29)
PROC: BD1BYZZ Fluoroscopy of Mouth/Oropharynx using Other Contrast (ICD-10-PCS; 2017-01-31)
DX: A41.9 Sepsis, unspecified organism (principal); J96.01 Acute respiratory failure with hypoxia; J69.0 Pneumonitis due to inhalation of food and vomit; E43 Unspecified severe protein-calorie malnutrition; E87.0 Hyperosmolality and hypernatremia; D69.6 Thrombocytopenia, unspecified; N39.0 Urinary tract infection, site not specified; F03.91 Unspecified dementia, unspecified severity, with behavioral disturbance; E83.39 Other disorders of phosphorus metabolism; F23 Brief psychotic disorder; R65.20 Severe sepsis without septic shock; I25.10 Atherosclerotic heart disease of native coronary artery without angina pectoris; J44.9 Chronic obstructive pulmonary disease, unspecified; F32.9 Major depressive disorder, single episode, unspecified; G47.00 Insomnia, unspecified; Z66 Do not resuscitate; I10 Essential (primary) hypertension; E78.5 Hyperlipidemia, unspecified; R26.9 Unspecified abnormalities of gait and mobility; R91.8 Other nonspecific abnormal finding of lung field; F17.210 Nicotine dependence, cigarettes, uncomplicated; Z86.73 Personal history of transient ischemic attack (TIA), and cerebral infarction without residual deficits; Z95.5 Presence of coronary angioplasty implant and graft; Z90.49 Acquired absence of other specified parts of digestive tract; Z90.11 Acquired absence of right breast and nipple; Z85.3 Personal history of malignant neoplasm of breast; Z88.0 Allergy status to penicillin; Z88.6 Allergy status to analgesic agent; Z79.899 Other long term (current) drug therapy; Z83.3 Family history of diabetes mellitus; Z80.8 Family history of malignant neoplasm of other organs or systems